=== PATIENT | male | born 1945 | race American Indian/Alaskan Native ===

== ENCOUNTER 2019-01-25 13:42 | Observation (INO) | payer MEDICARE ==
[2019-01-25] MEDS ORDERED: ASPIRIN 325 MG TAB PO ONE (14:18)
--- NOTE | 2019-01-25 14:21 | Event Note ---
ED Screening Note Date of service: 01/25/19 Time: 14:16 ED Screening Note: This is 73 y.o. M. that presents to the ER with chest pain. Patient sent from [facility] office. Patient states pain is only after walking. Current smoker PMH of HTN, DVT on eliquis, vitamin D deficiency This initial assessment/diagnostic orders/clinical plan/treatment(s) is/are subject to change based on patients health status, clinical progression and re- assessment by fellow clinical providers in the ED. Further treatment and workup at subsequent clinical providers discretion. Patient/guardian urged not to elope from the ED as their condition may be serious if not clinically assessed and managed. Initial orders include: Labs, EKG, & CXR
--- NOTE | 2019-01-25 14:54 | Consultation ---
History of Present Illness Consult date: 01/25/19 Requesting physician: RAFAT MIRELES Consult reason: chest pain, known to you History of present illness: The pt is a 73 YO male with a past medical history of HTN, HLP, DVT and PE (diagnosed in 2017), anticoagulated on Eliquis, DJD, occasional cigar smoker. He presented to Dr. Bullard in our office today for consultation per his PCP. Pt presented with c/o chest pain. For the past 3 days, he has been experiencing recurrent exertional substernal chest pain which he describes as an aching sensation. It is associated which exertional dyspnea. There is no orthopnea or PND. He claims that while climbing up the stairs to the office today, he developed chest pain as well as shortness of breath. Symptoms had resolved by the time he came into the office for evaluation. While in the office, he underwent a treadmill exercise stress test during which he completed 4 minutes and 8 seconds of a Glenn protocol. The test was terminated after he developed 10/10 chest pain which assisted in 2 the late recovery phase and was eventually relieved with 2 sublingual nitroglycerin tablets. He became diaphoretic during the episode of chest pain. ECG showed [address] segment depression in leads V2 and V3 at peak exercise which resolved in the early recovery phase. Pt was transported to ED for further eval/management. On evaluation, he appears comfortable and denies any current cardiac complaints. Past History Past Medical History: hypertension Past Surgical History: total hip replacement (left) Social history: smoking. denies: alcohol abuse, prescription drug abuse Medications and Allergies Allergies Allergy/AdvReac Type Severity Reaction Status Date / Time No Known Allergies Allergy Verified 01/25/19 14:19 Review of Systems Constitutional: no weight loss, no weight gain, no fever, no chills, no sweats Ears, nose, mouth and throat: no ear pain, no nose pain, no sinus pressure, no sinus pain Cardiovascular: chest pain, shortness of breath, dyspnea on exertion, high blood pressure, decreased exercise tolerance, no orthopnea, no palpitations, no rapid/irregular heart beat, no edema, no syncope, no lightheadedness, no leg edema Respiratory: shortness of breath, dyspnea on exertion, no cough, no congestion, no wheezing, no pain on inspiration Gastrointestinal: no abdominal pain, no nausea, no vomiting, no diarrhea, no constipation, no change in bowel habits Genitourinary Male: no dysuria, no hematuria, no flank pain, no discharge, no urinary frequency, no urinary hesitancy Musculoskeletal: no neck stiffness, no neck pain, no shooting arm pain, no arm numbness/tingling, no low back pain, no shooting leg pain Integumentary: no rash, no pruritis, no redness, no sores, no wounds Neurological: no head injury, no paralysis, no weakness, no parathesias, no numbness, no tingling, no seizures, no syncope Psychiatric: no anxiety Endocrine: no cold intolerance, no heat intolerance Hematologic/Lymphatic: no easy bruising, no easy bleeding Allergic/Immunologic: no urticaria, no wheezing Physical Examination Vital Signs Temp Pulse Resp BP Pulse Ox 97.8 F 63 18 120/72 99 01/25/19 14:17 01/25/19 14:17 01/25/19 14:17 01/25/19 14:17 01/25/19 14:17 General appearance: no acute distress HEENT: Positive: PERRL, Normocephaly, Mucus Membranes Moist Neck: Positive: neck supple, trachea midline Cardiac: Positive: Reg Rate and Rhythm, S1/S2 Lungs: Positive: Decreased Breath Sounds Neuro: Positive: Grossly Intact Abdomen: Negative: Tender Skin: Negative: Rash, Wound Musculoskeletal: No Pain Extremities: Absent: edema Results 01/25/19 14:38 01/25/19 14:38 - Imaging and Cardiology Echo: pending EKG: report reviewed, image reviewed EKG interpretations - Telemetry EKG Rhythm: Sinus Rhythm - EKG Sinus rhythms and dysrhythmias: sinus rhythm AV and intraventricular conduction: right bundle branch block Assessment and Plan Pt presented with exertional chest pain, exertional dyspnea and underwent treadmill stress test in our office today which was abnormal. Coronary angiography recommended for definitive diagnosis. Indications, potential risks and benefits of LHC reviewed with pt and he is agreeable to proceed in AM. NPO after MN. Hold home Eliquis prior to LHC - last dose was yesterday evening. The patient has been seen in conjunction with Dr. Mcwilliams who agrees with the assessment and plan of care. - Patient Problems (1) Exertional chest pain Status: Acute (2) Exertional dyspnea Status: Acute (3) Abnormal stress test Status: Acute (4) HTN (hypertension) Status: Acute (5) History of DVT (deep vein thrombosis) Status: Acute (6) History of pulmonary embolism Status: Acute (7) Right bundle branch block Status: Acute (8) Tobacco use Status: Chronic
[2019-01-25 14:55] LABS: Basophils % (Auto) 0.6 % (0.0-1.8); Eosinophils # (Auto) 0.1 K/mm3 (0.0-0.4); Eosinophils % (Auto) 0.9 % (0.0-4.3); Hematocrit 44.9 % (35.5-45.6); Hemoglobin 14.7 gm/dl (11.8-15.2); Lymphocytes # (Auto) 1.2 K/mm3 (1.2-5.4); Lymphocytes % (Auto) 15.6 % (13.4-35.0); Mean Corpuscular HGB Conc 33 % (32-34); Mean Corpuscular Volume 99 fl (84-94); Monocytes # (Auto) 0.7 K/mm3 (0.0-0.8); Monocytes % (Auto) 8.3 % (0.0-7.3); Platelet Count 227 K/mm3 (140-440); Red Blood Count 4.53 M/mm3 (3.65-5.03); Red Cell Distribution Width 16.3 % (13.2-15.2)
[2019-01-25] MEDS ORDERED: SODIUM CHLORIDE 0.9% 500 ML 500 ML IV SCH (15:00)
--- NOTE | 2019-01-25 15:04 | XRay Report ---
CHEST 1 VIEW 01/25/2019 2:36 PM INDICATION / CLINICAL INFORMATION: Chest Pain. COMPARISON: None available. FINDINGS: SUPPORT DEVICES: None. HEART / MEDIASTINUM: No significant abnormality. LUNGS / PLEURA: No significant pulmonary or pleural abnormality. No pneumothorax. ADDITIONAL FINDINGS: There are degenerative changes of the spine. No significant additional findings. IMPRESSION: No acute abnormality of the chest. Signer Name: Hernán Stock MD Signed: 01/25/2019 2:59 PM Workstation Name: [id number]
[2019-01-25 15:18] LABS: BUN/Creatinine Ratio 23; Blood Urea Nitrogen 34 mg/dL (9-20); Calcium 9.1 mg/dL (8.4-10.2); Hemolysis Index 7
--- NOTE | 2019-01-25 15:27 | Emergency Department Report ---
ED Chest Pain HPI - General Chief Complaint: Chest Pain Stated Complaint: CHEST PAIN Time Seen by Provider: 01/25/19 14:16 Source: patient, EMS Mode of arrival: Stretcher Limitations: No Limitations - History of Present Illness Initial Comments: 73-year-old -[place] male presents to the emergency department from the [facility] for admission for a heart catheterization to be done tomorrow. The patient presented today for a stress test, sent in by his PCP Rochelle Dockery, after he was having 3 days of some exertional substernal aching chest pain. He has a past medical history of hypertension, hyperlipidemia, PE and DVT anticoagulated on Eliquis. He is a cigar smoker. Denies any illicit drug use. He was having the stress test performed today when he started having some ischemic changes on the EKG and increased chest pain. He was given 3 some little nitroglycerin and then eventually had resolution of the chest pain at that time. He was seen in the emergency department by the PA for [facility] cardiology and the plan is to do a heart cath tomorrow. Severity scale (0 -10): 0 - Related Data Allergies Allergy/AdvReac Type Severity Reaction Status Date / Time No Known Allergies Allergy Verified 01/25/19 14:19 Heart Score - HEART Score History: Moderately suspicious EKG: Non-specific Age: > 65 Risk factors: 1-2 risk factors Troponin: < normal limit HEART Score: 5 - Critical Actions Critical Actions: 4-6 pts:12-16.6% risk of adverse cardiac event. Should be admitted ED Review of Systems ROS: Stated complaint: CHEST PAIN Other details as noted in HPI Comment: All other systems reviewed and negative Constitutional: denies: chills, fever Respiratory: denies: cough, shortness of breath Cardiovascular: chest pain. denies: palpitations Gastrointestinal: denies: abdominal pain, vomiting Musculoskeletal: denies: back pain, arthralgia Neurological: denies: headache, weakness ED Past Medical Hx - Past Medical History Previous Medical History?: Yes Hx Hypertension: Yes Additional medical history: PE - Social History Smoking Status: Current Some Day Smoker Substance Use Type: None ED Physical Exam - General Limitations: No Limitations - Other Other exam information: GENERAL: The patient is well-developed well-nourished. HENT: Normocephalic. Atraumatic. Patient has moist mucous membranes. EYES: Extraocular motions are intact. NECK: Supple. Trachea is midline. CHEST/LUNGS: Clear to auscultation. There is no respiratory distress noted. HEART/CARDIOVASCULAR: Regular. There is no tachycardia. There is no murmur. ABDOMEN: Abdomen is soft, nontender. Patient has normal bowel sounds. There is no abdominal distention. SKIN: Skin is warm and dry. NEURO: The patient is awake, alert, and oriented. The patient is cooperative. The patient has no focal neurologic deficits. Normal speech. MUSCULOSKELETAL: There is no tenderness or deformity. There is no evidence of acute injury. ED Course Vital Signs 01/25/19 01/25/19 14:17 15:18 Temperature 97.8 F Pulse Rate 63 55 L Respiratory 18 17 Rate Blood Pressure 120/72 Blood Pressure 127/68 [Left] O2 Sat by Pulse 99 97 Oximetry ISAK score - Isak Score Age > 65: (1) Yes Aspirin use within the Past 7 Days: (1) Yes 3 or more CAD Risk Factors: (0) No 2 or more Angina events in past 24 hrs: (1) Yes Known CAD with more than 50% Stenosis: (0) No Elevated Cardiac Markers: (0) No ST Deviation Greater than 0.5mm: (1) Yes ISAK Score: 4 ED Medical Decision Making - Lab Data Result diagrams: 01/25/19 14:38 01/25/19 14:38 - EKG Data -: EKG Interpreted by Me EKG shows normal: sinus rhythm, axis, intervals, QRS complexes (RBBB), ST-T waves Rate: bradycardia (54 bpm) - EKG Data When compared to previous EKG there are: previous EKG unavailable Interpretation: other (RBBB with mild bradycardia) - Radiology Data Radiology results: image reviewed interpreted by me: Chest x-ray does not show any acute process. There are no pleural effusions, obvious pneumonia and there is no pneumothorax. - Medical Decision Making This patient presents from the cardiology office after having an abnormal stress test. The patient began having exertional pain and dyspnea and some ischemic changes seen on the EKG. He was given sublingual nitroglycerin 3 and eventually the symptoms resolved. He was told to come to the emergency department for admission and probable heart catheterization tomorrow. In the emergency department the patient has an EKG showing right bundle branch block but no ST elevation IL. Labs so far have been unremarkable including a negative troponin. Vital signs stable throughout his ED course thus far. Patient will be admitted to the telemetry floor for further evaluation. - Differential Diagnosis IL, Pneumonia, CHF, PE Critical Care Time: No Critical care attestation.: If time is entered above; I have spent that time in minutes in the direct care of this critically ill patient, excluding procedure time. ED Disposition Clinical Impression: Exertional chest pain, Right bundle branch block, History of pulmonary embolism, Abnormal stress test Disposition: OP ADMIT IP TO THIS HOSP Is pt being admited?: Yes Condition: Fair Time of Disposition: 15:29
--- NOTE | 2019-01-26 00:37 | Event Note ---
Date: 01/25/19 See history and physical in the reports Chest pain rule out PA
[2019-01-26] MEDS ORDERED: HYDROmorphone 1 MG/1 ML INJ IV PRN (00:41)
[2019-01-26] MEDS ORDERED: HYDROcodone/ACETAMINOPHEN 5-325 MG TAB PO PRN (00:41)
[2019-01-26] MEDS ORDERED: ONDANSETRON 4 MG/2 ML INJ IV PRN (00:41)
[2019-01-26] MEDS ORDERED: ZOLPIDEM 5 MG TAB PO PRN (00:41)
[2019-01-26] MEDS ORDERED: ACETAMINOPHEN 325 MG TAB PO PRN (00:41)
--- NOTE | 2019-01-26 00:54 | History and Physical Report ---
CHIEF COMPLAINT: Left-sided chest pain while doing stress test. HISTORY OF PRESENT ILLNESS: A 73-year-old male has been having chest pain while walking for the past 1 week. He went to his perioperative assistant and had a stress test during which the patient had chest pain and positive stress test. The patient is sent by perioperative assistant for cardiac catheterization tomorrow. Chest pain on exertion for the last 1 week. No diaphoresis, no shortness of breath. PAST MEDICAL HISTORY: Significant for hypertension and PE in the past. SOCIAL HISTORY: Current smoker. PAST SURGICAL HISTORY: Unknown. FAMILY HISTORY: Hypertension. REVIEW OF SYSTEMS: Significant for shortness of breath, chest pain on exertion. Otherwise, review of systems negative. PHYSICAL EXAMINATION: GENERAL: Elderly male, cooperative during examination. VITAL SIGNS: Blood pressure 117/76, temperature 98.8, pulse is 57, respirations are 15. HEENT: Unremarkable. Pupils equal and reactive. NECK: Supple, no lymphadenopathy, no thyromegaly. LUNGS: Clear to auscultation and percussion. Good air entry. CARDIOVASCULAR: S1, S2 heard. No gallop, no murmur, no rub. Apical impulse in left fifth intercostal space and midclavicular line. ABDOMEN: Soft and benign. No hepatosplenomegaly. No guarding, no rigidity. Hernial orifices are normal. EXTREMITIES: Good pedal pulses. No pedal edema. SKIN: Normal. LABORATORY DATA: CBC is normal. Electrolytes are normal. Glucose is 113. Troponin is 0.010. ASSESSMENT AND PLAN: 1. Chest pain, rule out myocardial infarction, stable angina. We will get serial cardiac enzymes. The patient for cardiac catheterization in the morning. Cardiology consulted. 2. Hypertension. Continue lisinopril. 3. Anticoagulation and history of pulmonary embolism. Continue Eliquis 5 mg daily. 4. Deep vein thrombosis prophylaxis. The patient is on Eliquis. 5. Gastrointestinal prophylaxis initiated. In summary, the patient has stable angina and a positive stress test. The patient to get a cardiac catheterization in the morning. JOB# [id number] VSM/NTS
[2019-01-26] MEDS: SODIUM CHLORIDE 0.9% 1000 ML 1,000 ML IV SCH ×3 (02:19→11:52)
[2019-01-26 06:11] LABS: Basophils # (Auto) 0.1 K/mm3 (0.0-0.1); Basophils % (Auto) 1.1 % (0.0-1.8); Eosinophils # (Auto) 0.1 K/mm3 (0.0-0.4); Eosinophils % (Auto) 1.8 % (0.0-4.3); Hematocrit 38.2 % (35.5-45.6); Hemoglobin 12.9 gm/dl (11.8-15.2); Lymphocytes # (Auto) 1.6 K/mm3 (1.2-5.4); Lymphocytes % (Auto) 23.6 % (13.4-35.0); Mean Corpuscular HGB Conc 34 % (32-34); Mean Corpuscular Volume 98 fl (84-94); Monocytes # (Auto) 0.6 K/mm3 (0.0-0.8); Platelet Count 192 K/mm3 (140-440); Red Blood Count 3.91 M/mm3 (3.65-5.03)
[2019-01-26 06:26] LABS: INR 1.08 (0.87-1.13)
[2019-01-26 06:29] LABS: Calcium 8.5 mg/dL (8.4-10.2)
[2019-01-26] MEDS ORDERED: ASPIRIN 325 MG TAB ONE (07:39)
[2019-01-26] MEDS: ASPIRIN 325 MG TAB PO SCH ×2 (07:39→10:00)
[2019-01-26] MEDS ORDERED: SODIUM CHLORIDE 0.9% 1000 ML 1,000 ML ONE (07:40)
[2019-01-26] MEDS ORDERED: HEPARIN/NS 5000 UNIT/500ML 1,000 ML IR ONE (08:15)
[2019-01-26] MEDS ORDERED: MIDAZOLAM 2 MG/2 ML INJ ONE (08:16)
[2019-01-26] MEDS ORDERED: VERAPAMIL 5 MG/2 ML INJ ONE (08:16)
[2019-01-26] MEDS ORDERED: LIDOCAINE (2%) 20 MG/1 ML VIAL 20 ML MDV INFILTRATI ONE (08:16)
[2019-01-26] MEDS ORDERED: NITROGLYCERIN SYRINGE 3 ML ONE (08:16)
[2019-01-26] MEDS ORDERED: fentaNYL 100 MCG/2 ML INJ ONE (08:16)
[2019-01-26] MEDS ORDERED: HEPARIN 10,000 UNITS/10 ML VIAL ONE (08:16)
[2019-01-26] MEDS ORDERED: APIXABAN 5 MG TAB PO SCH (10:00)
[2019-01-26] MEDS ORDERED: FAMOTIDINE 20 MG TAB PO SCH (10:00)
[2019-01-26] MEDS ORDERED: LISINOPRIL 10 MG TAB PO SCH (10:00)
[2019-01-26] MEDS ORDERED: FAMOTIDINE 10 MG TAB PO SCH (10:00)
--- NOTE | 2019-01-26 10:22 | Cardiac Catherization Report ---
INDICATION FOR PROCEDURE: The patient is a 73-year-old -[place] gentleman who was evaluated in the office yesterday for chest pain. He had a stress test at which time he had significant chest pain along with mild ST depressions. Hence scheduled for cardiac catheterization for definitive diagnosis and treatment. Troponins were found to be negative. EKG was unremarkable except for right bundle branch block. DESCRIPTION OF PROCEDURE: The patient was brought to the catheterization laboratory in a fasting condition. The patient was evaluated for moderate sedation and was felt to be appropriate candidate for moderate sedation, received IV Versed and fentanyl. Subsequently, patient was prepared in standard fashion. Local anesthesia was given in the right wrist area and right radial artery puncture was made using 21-gauge arterial puncture needle. Subsequently, 5-Portuguese slender sheath was introduced. A 5-Portuguese multipurpose catheter was used to obtain the angiograms of the left coronary artery in multiple views, angiograms of the right coronary artery and left ventriculogram done in FRENANDO projection using hand injection. At the end of the procedure, catheter and sheath were removed. The patient was monitored throughout the procedure with pulse oximetry, EKG monitoring and hemodynamic monitoring. The patient tolerated the procedure well. No untoward complications were noted. At the end of the procedure, patient was communicating normally, moving all the extremities and breathing normally. Patient was sedated at 09:05 AM and monitored till 09:21AM . The patient was transferred to the room in stable condition. Good hemostasis was achieved with application of radial band. Following findings were noted. HEMODYNAMICS: 1. Opening aortic pressure 112/60, left ventricular pressure 113/19. No gradient across the aortic valve. Estimated ejection fraction 55%. 2. Left ventriculogram done in FERNANDO projection showed normal sized left ventricle with normal contractility. End-diastolic and systolic volumes are normal. Mitral regurgitation could not be evaluated because of limited amount of dye injected. 3. Right coronary artery dominant vessel arises normally from right coronary cusp, angiographically smooth and normal. 4. Left coronary artery arises normally from left coronary cusp. No significant calcification noted. Left main is smooth and normal. LAD: Tortuous vessel, but angiographically smooth with minimal irregularities. Proximal diagonal branch fairly large vessel without significant disease. Mid diagonal branch is small caliber, less than 1.5 mm has a smooth 60% or so lesion in the proximal one-third. This is a segmental lesion. Distal vessel was small caliber, but without significant disease. Circumflex artery and its branch are angiographically smooth with minimal irregularities. Collaterals none. FINAL IMPRESSION: 1. Normal sized left ventricle with normal contractility and end diastolic pressure, upper limits of normal. 2. Moderate to borderline significant mid diagonal lesion in the proximal part; however, this distal vessel is small caliber, approximately 1.5 mm or less. Rest of the coronaries showed only minimal irregularities. Considering vessel size of the diagonal, it was felt medical therapy is appropriate. We will optimize his medical therapy and if he continues to have anginal pains or significant ischemia, we can consider intervention of the mid diagonal branch. However, considering the small caliber, less than 1.5 mm, would recommend continued medical therapy. Findings were explained to the patient. It is to be noted patient does have similar chest pain, which he has like bloating in the chest during the procedure and all the vessels are open. Findings were explained to the patient in detail, they understand. JOB# [id number] PILAR/SCAR MALONEY
--- NOTE | 2019-01-26 11:08 | Progress Note ---
Assessment and Plan S/p C this morning which showed 60% mid diagonal lesion in prox part, distal vessel with small caliber, rest of coronaries only minimal irregularities, EF 55%. Will manage medically at this time. Can consider intervention if he continues to be symptomatic despite optimal medical therapy. Initiate ASA 81, lipitor, Imdur. Cont home lisinopril and nifedipine and Eliquis. No BB at this time in setting of sinus bradycardia. Currently stable cardiac status. Pt may discharge home from cardiology standpoint following completion of post-cath order set. Follow up in our [place] office with Dr. Bullard on 02/01/2019 @ 11:45AM. The patient has been seen in conjunction with Dr. Mcwilliams who agrees with the assess ment and plan of care. - Patient Problems (1) Mild CAD Current Visit: Yes Status: Chronic (2) Exertional chest pain Current Visit: Yes Status: Acute (3) Exertional dyspnea Current Visit: Yes Status: Acute (4) Abnormal stress test Current Visit: Yes Status: Chronic (5) HTN (hypertension) Current Visit: Yes Status: Chronic (6) History of DVT (deep vein thrombosis) Current Visit: Yes Status: Chronic (7) History of pulmonary embolism Current Visit: Yes Status: Chronic (8) Right bundle branch block Current Visit: Yes Status: Chronic (9) Tobacco use Current Visit: Yes Status: Chronic Subjective Date of service: 01/26/19 Principal diagnosis: cp Interval history: for [facility], no complaints. tele reviewed - in SR HR 60s with sinus bradycardia HR 40s overnight. Objective Last Vital Signs Temp 98.0 F 01/26/19 03:55 Pulse 60 01/26/19 08:39 Resp 16 01/26/19 03:55 BP 107/62 01/26/19 03:55 Pulse Ox 96 01/26/19 03:55 - Physical Examination General: No Apparent Distress HEENT: Positive: PERRL, Normocephaly, Mucus Membranes Moist Neck: Positive: neck supple, trachea midline Cardiac: Positive: Reg Rate and Rhythm, S1/S2 Lungs: Positive: Decreased Breath Sounds Neuro: Positive: Grossly Intact Abdomen: Negative: Tender Skin: Negative: Rash, Wound Musculoskeletal: No Pain Extremities: Absent: edema - Labs and Meds Coagulation 01/26/19 Range/Units 05:49 PT 13.7 (12.2-14.9) Sec. INR 1.08 (0.87-1.13) CBC 01/25/19 01/26/19 Range/Units 14:38 05:49 WBC 7.9 6.8 (4.5-11.0) K/mm3 RBC 4.53 3.91 (3.65-5.03) M/mm3 Hgb 14.7 12.9 (11.8-15.2) gm/dl Hct 44.9 38.2 D (35.5-45.6) % Plt Count 227 192 (140-440) K/mm3 Lymph # 1.2 1.6 (1.2-5.4) K/mm3 [place] # 0.7 0.6 (0.0-0.8) K/mm3 Eos # 0.1 0.1 (0.0-0.4) K/mm3 Baso # 0.0 0.1 (0.0-0.1) K/mm3 Comprehensive Metabolic Panel 01/25/19 01/26/19 Range/Units 14:38 05:49 Sodium 138 139 (137-145) mmol/L Potassium 4.1 4.4 (3.6-5.0) mmol/L Chloride 105.4 105.5 (98-107) mmol/L Carbon Dioxide 20 L 21 L (22-30) mmol/L BUN 34 H 36 H (9-20) mg/dL Creatinine 1.5 1.4 (0.8-1.5) mg/dL Glucose 113 H 85 (75-100) mg/dL Calcium 9.1 8.5 (8.4-10.2) mg/dL - Imaging and Cardiology EKG: report reviewed, image reviewed Echo: pending - EKG Sinus rhythms and dysrhythmias: sinus rhythm AV and intraventricular conduction: right bundle branch block
--- NOTE | 2019-01-26 13:56 | Discharge Summary ---
Providers - Providers Date of Admission: 01/25/19 15:30 Date of discharge: 01/26/19 Attending physician: NAKUL MA 01/25/19 14:42 Consult to Physician [CONS] Routine Comment: Consulting Provider: TOMI HUNG Physician Instructions: Reason For Exam: acute chest pain, failed stress test 01/26/19 10:59 Consult to Cardiac Rehabilitation [CONS] Routine Reason For Exam: Cardiac Rehab Evaluation Primary care physician: GHULAM HARRINGTON Hospitalization Condition: Fair Procedures: Left heart catheterization which showed mild coronary disease. Echocardiogram shows ejection fraction 55-60%. Hospital course: Patient 73 years old history of hypertension presents with chest pain. Workup patient found to have abnormal stress test. Patient proceeded with cardiac catheterization which showed 60% stenosis. Cardiology evaluation patient can be treated medical management and will follow-up if he becomes symptomatic for possible PCI at that time. Otherwise aggressive medical management aspirin Plavix afterload stock replenisher. Indoor lisinopril patient stable for discharge follow-up with cardiology Dr. Chinchilla per polo. No beta radha secondary to sinus bradycardia. Disposition: DC-01 TO HOME OR SELFCARE Core Measure Documentation - Palliative Care Palliative Care/ Comfort Measures: Not Applicable - Core Measures Any of the following diagnoses?: heart failure - Heart Failure Discharge Requirements DAVID/ARB for LVSD if EF <40%: Yes Beta radha at discharge: No Reason for no beta radha on DC: Bradycardia Exam - Constitutional Vitals: Temp Pulse Resp BP Pulse Ox 98.0 F 58 L 16 122/70 96 01/26/19 03:55 01/26/19 11:50 01/26/19 03:55 01/26/19 11:50 01/26/19 03:55 General appearance: Present: no acute distress, well-nourished - EENT Eyes: Present: PERRL ENT: hearing intact, clear oral mucosa - Neck Neck: Present: supple, normal ROM - Respiratory Respiratory effort: normal Respiratory: bilateral: CTA - Cardiovascular Heart Sounds: Present: S1 & S2. Absent: rub, click - Extremities Extremities: pulses symmetrical, No edema Peripheral Pulses: within normal limits - Abdominal General gastrointestinal: Present: soft, non-tender, non-distended, normal bowel sounds Male genitourinary: Present: normal - Integumentary Integumentary: Present: clear, warm, dry - Musculoskeletal Musculoskeletal: gait normal, strength equal bilaterally - Psychiatric Psychiatric: appropriate mood/affect, intact judgment & insight - Neurologic Neurologic: CNII-XII intact, moves all extremities Plan Activity: no restrictions Weight Bearing Status: Full Weight Bearing Diet: low carbohydrate Follow up with: GABRIEL JAUREGUI MD [Staff Physician] - 7 Days (Follow up in our [place] office with Dr. Jauregui on 02/01/2019 @ 11:45AM. ) GHULAM HARRINGTON MD [Primary Care Provider] - 7 Days Prescriptions: Aspirin [Aspirin BABY CHEW TAB] 81 mg PO QDAY #30 tab.chew Apixaban [Eliquis] 5 mg PO QDAY #30 tablet ISOSORBIDE MONOnitrate [Imdur ER] 30 mg PO QDAY #30 tablet Digoxin [Lanoxin] 0.125 mg PO QDAY #30 tablet AtorvaSTATin [Lipitor] 20 mg PO QHS #30 tablet Famotidine [Pepcid] 10 mg PO BID #60 tablet Lisinopril [Zestril TAB] 10 mg PO QDAY #30 tablet
[2019-01-26] MEDS ORDERED: DIGOXIN 0.125 MG TAB PO SCH (17:00)
[2019-01-26 17:05] VITALS: BP 101/66
[2019-01-27] MEDS ORDERED: ASPIRIN 81 MG TAB CHEW PO SCH (10:00)
== END 2019-01-26 15:50 | disposition home or self-care (01) ==
LOC: ED 13:42 → 4A 15:30
PROVIDERS: ADMIT Internal Medicine; ATTEND Internal Medicine
DX: R07.89 Other chest pain (principal); I10 Essential (primary) hypertension; R06.00 Dyspnea, unspecified; R94.39 Abnormal result of other cardiovascular function study; I25.10 Atherosclerotic heart disease of native coronary artery without angina pectoris; I45.10 Unspecified right bundle-branch block; F17.200 Nicotine dependence, unspecified, uncomplicated; Z86.711 Personal history of pulmonary embolism; Z86.718 Personal history of other venous thrombosis and embolism
CPT/HCPCS: 36415; 71045; 80048; 82962; 83036; 84484; 85025; 85610; 93005; 93010; 93306; 93458; 99284; 99406; C1894; G0378; J1644; J2250; J3010; J7030; J7040; Q9967